=== PATIENT | female | born 1955 | race Caucasian/White ===

== ENCOUNTER 2019-03-18 09:56 | Outpatient (CLI) | payer SELFPAY ==
[2019-03-18 11:11] VITALS: BMI 22.1
--- NOTE | 2019-03-18 11:12 | NMCV_ITS ---
NM geraldine perf SPECT r/s* [id number] Arlin Figueredo Age: 63 Gender: F : 1955 Exam Date: 03/18/2019 11:11 Ordering Phys: Ginger William MD ([email or web address]) Technologist: WARREN Peguero Exam Location: [facility] Indications: SOB STRESS TEST Please see separate stress test report in [facility] for full findings IMAGE PROTOCOL Rest/Stress 1 Lexiscan Day Radiopharmaceutical Dose (mCi) Administration Site Administered by Rest: Tc-99m 10.4 IV WARREN Peguero Sestamibi Stress:Tc-99m 31.5 IV WARREN Peguero Sestamibi Rest: 18-Mar-2019 60 Discovery 630 Stress: 18-Mar-2019 60 Discovery 630 0.4mg Lexiscan. Images obtained in supine and prone position. SPECT RESULTS Technical Quality: Excellent Raw Data Analysis: Normal Image Corrections: No attenuation or motion correction applied Summed Stress Score: 0 Summed Rest Score: 0 Summed Difference Score: 0 PERFUSION FINDINGS SPECT images demonstrate homogeneous tracer distribution throughout the myocardium. FUNCTIONAL RESULTS (calculated via Gated SPECT) Stress Image LV EF (%): 93 Stress EDV (mL):27 TID: 1.33 Stress ESV (mL):2 Rest Image LV EF (%): 93 FUNCTIONAL FINDINGS: There is normal left ventricular systolic function. IMPRESSIONS Myocardial perfusion imaging is normal. TID ratio is elevated which could be secondary to left ventricle hypertrophy/subendocardial ischemia in the absence of other parameters. Giuliana Morocho MD (Electronically Signed) Final Date: 18 March 2019 19:13 S
--- NOTE | 2019-03-18 11:12 | ECG_ITS ---
NAME OF STUDY: LEXISCAN SESTAMIBI STRESS TEST INDICATION: Chest Pain NOTE: Please note that this is the electrocardiogram portion of the Lexiscan/Sestamibi stress test. The perfusion scan will be documented separately. DATA: Baseline heart rate was 81 beats per minute. Baseline blood pressure was 125/77 millimeters of mercury. Target heart rate was 156. Maximum heart rate achieved was 107. which was 68 % of the predicted target heart rate. Maximum blood pressure was 136/96 millimeters of mercury. The reason for ending the test was completion of the protocol. The patient did not experience any symptoms. ELECTROCARDIOGRAM: BASELINE: Sinus rhythm. Normal axis. Old anterior wall myocardial infarction After Lexiscan injection, inferolateral T-wave inversions in first minute of the injection was noted which then resolved in second minute . CONCLUSION: Please note due to baseline abnormality of the EKG specificity and sensitivity of the EKG portion of LexiScan MIBI stress test will be low 1. EKG equivocal but not significant ischemia 2. Lexiscan injection unremarkable. 3. Perfusion scan will be documented separately. Electronically Signed On 03-30-2019 0:30:52 CROZE CUTTER HELPER by Giuliana Morocho M.D. [id number]
[2019-03-18] MEDS: regadenoson 0.4 Mg/5 ml Syringe IVP (11:56)
[2019-03-18 12:17] VITALS: BP 116/93; PULSE 100
== END 2019-03-18 09:57 | disposition home or self-care (01) ==
PROVIDERS: Family Provider Family Medicine; PCP Internal Medicine Cardiovascular Disease; Visit Provider Internal Medicine Cardiovascular Disease
DX: R07.9 Chest pain, unspecified (principal)
CPT/HCPCS: 78452; 93017; A9500; J2785

== ENCOUNTER 2022-02-07 08:59 | Outpatient (CLI) | payer MEDICARE, SELFPAY ==
--- NOTE | 2022-02-07 09:30 | USCV_ITS ---
Arlin Figueredo Age: 66 Gender: F : 1955 Exam Date: 02/07/2022 09:56 Ordering Phys: Ginger William MD ([email or web address]) Technologist: DIANDRA [place] [facility] [place]: SHORTNESS OF BREATH BP: 150 / 90 HR: 67 Rhythm: Sinus Technical Quality: Poor secondary to COPD MEASUREMENTS (Male / Female) Normal Values 2D ECHO LVOT Diameter 2.0 cm LV Ejection Fraction MOD 2C 64.0 % LV Ejection Fraction 2C AL 63.9 % LA Diameter 2.1 cm LA Width 1.7 cm LA Height 2.1 cm RA Width 1.9 cm RA Height 2.5 cm Aorta at Sinotubular Diameter 1.4 cm IVC Diameter 1.5 cm M-MODE Aortic Annulus Diameter 2.0 cm LA Ao Ratio MM 1.1 MV E Point Septal Separation 0.3 cm DOPPLER AV Peak Velocity 127.0 cm/s LVOT Peak Velocity 96.0 cm/s AV Area Cont Eq vti 2.1 cm squared AV Area Cont Eq pk 2.3 cm squared MV Peak Velocity 92.0 cm/s MV Area PHT 3.3 cm squared Mitral E to A Ratio 1.0 MV E' Velocity 39.0 cm/s Mitral E to MV E' Ratio 7.2 Mitral E to LV E' Lateral Ratio 7.7 Mitral E to LV E' Septal Ratio 6.8 TR Peak Velocity 250.8 cm/s TR Peak Gradient 25.2 mmHg TR Mean Velocity 228.6 cm/s TR Mean Gradient 21.4 mmHg TR Velocity Time Integral 72.4 cm TV Peak E Velocity 51.0 cm/s Right Atrial Pressure 3.0 mmHg Pulmonary Artery Systolic Pressu 28.2 mmHg PV Peak Velocity 110.0 cm/s RV Acceleration Time 0.1 s RV Ejection Time 0.3 s RV AcT/ET 0.4 FINDINGS Left Ventricle Normal left ventricular size, systolic function and increased wall thickness, with no regional wall motion abnormalities. Left ventricular ejection fraction is estimated at 65 %. Normal diastolic function. Right Ventricle Normal right ventricular size and systolic function. Right ventricular systolic pressure 26 mmHg. Right Atrium Normal right atrial size. Left Atrium Normal left atrial size. Mitral Valve Structurally normal mitral valve. No mitral valve stenosis. No mitral valve regurgitation. Aortic Valve Structurally normal trileaflet aortic valve. No aortic valve stenosis. No aortic valve regurgitation. Tricuspid Valve Structurally normal tricuspid valve. Trace tricuspid valve regurgitation. Pulmonic Valve Pulmonic valve not well visualized. Pericardium No pericardial effusion. Aorta Normal size aortic root and proximal ascending aorta. IVC Normal IVC dimension with >50% respiratory change of the inferior vena cava. CONCLUSIONS 1. Normal left ventricular size, systolic function and increased wall thickness, with no regional wall motion abnormalities. Left ventricular ejection fraction is estimated at 65 %. Normal diastolic function. 2. Normal right ventricular size and systolic function. 3. Pulmonary artery pressure estimated at 26 mm Hg. 4. No prior similar studies to compare. Ginger William MD (Electronically Signed) Final Date: 10 February 2022 09:54 S
--- NOTE | 2022-02-07 12:15 | CT_ITS ---
WS: [id number] LDCT LUNG CANCER SCREENING HISTORY: Smoker. TECHNIQUE: Axial imaging performed from the apices to 1 cm below the costophrenic angles. Coronal and sagittal reformats are submitted with axial MIP series. All CT scans at [facility] use at least one of these dose optimization techniques: automated exposure control; mA and/or kV adjustment per patient size (includes targeted exams where dose is matched to clinical indication); or iterativ e reconstruction. DLP: 76.21 mGy.cm DIvol: Mean CTDIvol: 1.60 (mGy) COMPARISON: None available. Diagnostic quality: Satisfactory Lung Nodules: No pulmonary nodule or endobronchial lesions. Lungs: Severe centrilobular emphysema with pulmonary hyperexpansion. Small areas of pleural thickenin g and tagging and scarring in the periphery of the lungs. Heart: Normal size. Coronary artery calcifications. Other findings: Moderate hiatal hernia. Atherosclerosis and ectasia thoracic aorta. Increase in thora cic kyphosis. CT/CT lung screening [id number] IMPRESSION: LUNG-RADS: 1-Negative FOLLOW UP: 12 Month: Continue annual screening with LDCT OTHER FINDINGS (S MODIFIER): None.
== END 2022-02-07 09:00 | disposition home or self-care (01) ==
PROVIDERS: PCP Nurse Practitioner; Visit Provider Internal Medicine Cardiovascular Disease
DX: Z12.2 Encounter for screening for malignant neoplasm of respiratory organs (principal); R06.02 Shortness of breath; R07.9 Chest pain, unspecified
CPT/HCPCS: 71271; 93306; 94060; 94726; 94729

== ENCOUNTER 2022-04-19 10:27 | Outpatient (CLI) | payer MEDICARE, SELFPAY ==
--- NOTE | 2022-04-19 | ECG_ITS ---
[facility] Test Date: 2022-04-19 Pat Name: Arlin Figueredo Department: Room: Gender: Female Circus Supervisor: : 1955 Requested By: Ginger William Order Number: [id number] Luke MD: Anitha Guadalupe M.D. Interpretive Statements NAME OF STUDY: DOBUTAMINE SESTAMIBI STRESS TEST INDICATION: [Chest Pain, ] PROCEDURE: At the baseline, the blood pressure was 149/78 with a heart rate of 76. The electrocardiogram showed normal sinus rhythm with a poor R wave progression. Possible old anteroseptal MS. Possible right atrial enlargement. The dobutamine was infused over a period of 14 minutes and 57 seconds. The maximum heart rate obtained was 141 (92% of the maximum predicted heart rate). The blood pressure at that time was 105/70 mmHg. The patient did not have any chest pain or any significant electrocardiogram changes with the dobutamine infusion. Some nonspecific T wave changes are noted. The physical examination remained unchanged. No arrhythmias were seen on the monitor. Sestamibi was injected at the peak heart rate During the recovery phase, the patient did not have any specific symptoms. The blood pressure at the end of the recovery phase was 141/84 with a heart rate of 87 per minute. CONCLUSION: 1. Nonspecific EKG use of dobutamine infusion 2. No dobutamine induced chest pain or cardiac arrhythmia 3. Dobutamine induced hypotension was noted 4. Sestamibi/Sestamibi perfusion scan pending; see separate report. Electronically Signed On 04-22-2022 16:14:30 TRANSCRIPTION COORDINATOR by Anitha Guadalupe M.D. [id number]
[2022-04-19 11:39] VITALS: BMI 16.9
--- NOTE | 2022-04-19 11:47 | NMCV_ITS ---
NM geraldine perf SPECT r/s* [id number] Arlin Figueredo Age: 66 Gender: F : 1955 Exam Date: 04/19/2022 12:06 Ordering Phys: Ginger William MD ([email or web address]) Technologist: WARREN Rolon Exam Location: [facility] Indications: CHEST PAIN STRESS TEST Please see separate stress test report in [facility] for full findings IMAGE PROTOCOL Rest/Stress 1 Dobutamine Day Radiopharmaceutical Dose (mCi) Administration Site Administered by Rest: Tc-99m 10.8 IV WARREN Peguero Sestamibi Stress:Tc-99m 32.4 IV WARREN Rolon Sestamimisael Rest: 19-Apr-2022 60 Discovery 630 Stress: 19-Apr-2022 15 Discovery 630 Radiopharmaceutical was injected at 91 % maximum heart rate. Images obtained in supine and prone position. SPECT RESULTS Technical Quality: Excellent Raw Data Analysis: Normal Image Corrections: No attenuation or motion correction applied Summed Stress Score: 0 Summed Rest Score: 0 Summed Difference Score: 0 PERFUSION FINDINGS Uniform myocardial tracer uptake. No significant perfusion abnormalities FUNCTIONAL RESULTS (calculated via Gated SPECT) Stress Image LV EF (%): 84 Stress EDV (mL):38 TID: 0.9 Stress ESV (mL):6 FUNCTIONAL FINDINGS: Segmental wall motion analysis revealing no gross wall motion abnormalities IMPRESSIONS 1. Unremarkable Myocardial perfusion imaging 2. Normal LV ejection fraction of 84%. 3. LV wall motion analysis revealing no gross wall motion abnormalities. 4. Normal LV volume Low probability for coronary ischemia, based on the above findings Dr Anitha Guadalupe MD [facility] (Electronically Signed) Final Date: 21 April 2022 08:44 S
[2022-04-19] MEDS: DOBUTtamine 200 MG in sodium chloride 0.9% 34 ML 6 MG IV (12:53)
[2022-04-19] MEDS: atropine 0.1 mg/mL Syr 10 mL 0.5 MG IVP (13:06)
[2022-04-19] MEDS: ondansetron 2 mg/ML SDV 2 mL 4 MG IVP (13:09)
--- NOTE | 2022-04-19 13:44 | PC.NURSE ---
after pt hit target with the dobutamine and 0.1mg of atropine, [employer] infused nuclear isotope. Pt stated she had some nausea, nurse gave her a dose of zofran. Pt then complained of tenderness and itching skin above iv site where zofran was pushed. redness and tenderness was observed by nurse. symptoms resolved within 10 mins of administration of zofran. nurse to add zofran to allergy list.
[2022-04-19 14:01] VITALS: BP 141/84; PULSE 91
== END 2022-04-19 10:28 | disposition home or self-care (01) ==
LOC: CDL 10:32
PROVIDERS: PCP Nurse Practitioner; Visit Provider Internal Medicine Cardiovascular Disease
DX: R07.9 Chest pain, unspecified (principal)
CPT/HCPCS: 36415; 78452; 93017; 96375; A9500; J0461; J1250; J2405; J7050

== ENCOUNTER → 2022-10-20 11:04 | Outpatient (BNVA) | payer MEDICARE, SELFPAY | PROVIDERS: PCP Nurse Practitioner; Visit Provider Internal Medicine Pulmonary Disease | DX: J43.2 Centrilobular emphysema (principal); F17.210 Nicotine dependence, cigarettes, uncomplicated; K44.9 Diaphragmatic hernia without obstruction or gangrene; Z99.81 Dependence on supplemental oxygen | CPT/HCPCS: 99204 ==